=== PATIENT | female | born 1975 | race Caucasian/White ===

== ENCOUNTER 2017-02-27 16:15 | Emergency (ER) | payer OTHER ==
--- NOTE | ~2017-02-27 | CR72 ---
[facility] A Service of [facility] RADIOLOGY TEXT RESULTS PATIENT: BEN HIGGINS LOCATION: [facility] : 77 UNIT #: [id number] AGE: [address]: Yamil Vásquez MD SEX: F ORDER DR: [id number] [facility] [address] [place], [place] [address] [id number] E MR#: [id number] Acc #: [id number] NAME: BEN HIGGINS : 1975 SEX: F STUDY DATE/TIME: 02/27/2017 17:47 UNIT: [facility] ROOM: STUDY DESCRIPTION: CR Chest Single View Portable Attending Physician: Yamil Vásquez M.D. Ordering Physician: Yamil Vásquez M.D. Primary Care Physician: Primary Care Physician No MEDICAL IMAGING REPORT This report is preliminary unless electronic signature is present EXAM Chest portable, 02/27/2017 1747 hours HISTORY Chest pain for 4 hours today. COMPARISON None. FINDINGS Portable upright chest demonstrates normal cardiac, mediastinal and hilar contours. The lungs are well expanded and clear. There is no pleural effusion, pneumothorax or acute bone lesion. IMPRESSION Normal upright portable chest. Dictated by... Milka Butler M.D. THIS IS AN ELECTRONICALLY VERIFIED REPORT Milka Butler M.D. at 02/28/2017 9:33 AM DEEPA/kena TD: 02/27/2017 21:34 JOB #: [id number] MEDICAL IMAGING REPORT Page 1 of 1 COPY
--- NOTE | ~2017-02-27 | EKG ---
PATIENT: BEN HIGGINS UNIT #: [id number] Ventricular Rate: 68 BPM Atrial Rate: 68 BPM P-R Interval: 98 ms QRS Duration: 76 ms Q-T Interval: 394 ms QTC Calculation(Bezet): 418 ms P [place]: -25 degrees Calculated R [place]: 47 degrees Calculated T [place]: 57 degrees Diagnosis Line: Sinus rhythm with short [place] Diagnosis Line: Otherwise normal ECG Diagnosis Line: No previous ECGs available Diagnosis Line: Confirmed by BROOKE PARHAM MD ([id number]) on 02/28/2017 Diagnosis Line: 7:36:30 AM INTERPRETING MD: PRASAD ARAIZA
[~2017-02-27 16:15] MED LIST: BIRTH CONTROL PILL PO; IBUPROFEN800 MG PO; LOTRIMIN 1% CR30 GM EXT; MEDROL DOSEPAK4 MG PO; NO MEDICATIONS; TOBREX5 ML OP; TYLENOL #3 PO; ZANAFLEX4 M1 PO
[2017-02-27 17:37] LABS: BASOPHIL# 0.1 X10e3 (0-0.3); BASOPHIL% 0.6 % (0-2.5); EOSINOPHIL# 0.1 X10e3 (0-0.7); EOSINOPHIL% 0.9 % (0.0-7.0); HEMATOCRIT 35.3 % (35.0-45.0); HEMOGLOBIN 11.4 gm/dL (12.0-16.0); LYMPHOCYTE# 1.6 X10e3 (1.0-3.5); LYMPHOCYTE% 20.1 % (17.0-45.0); MEAN CELL VOLUME 83.4 FL (83-96); MEAN CORPUSCULAR HEMOGLOBIN 26.9 PG (28-34); MEAN CORPUSCULAR HGB CONC 32.2 g/dL (30-36); MEAN PLATELET VOLUME 9.7 FL (6.5-11.5); MONOCYTE# 0.7 X10e3 (0-1.0); MONOCYTE% 8.7 % (3.0-12.0); NEUTROPHIL# 5.4 X10e3 (1.5-7.1); NEUTROPHIL% 69.7 % (40-75); PLATELET COUNT 201 X10e3 (140-420); RED BLOOD COUNT 4.24 X10e (3.90-5.30); RED CELL DISTRIBUTION WIDTH 14.1 % (11.0-15.5); WHITE BLOOD COUNT 7.8 X10e3 (4.0-10.5)
[2017-02-27 17:44] LABS: DIFF IND NO
[2017-02-27 17:48] LABS: PARTIAL THROMBOPLASTIN TIME 26.1 SECONDS (23.5-31.3); PROTHROMBIN TIME (PATIENT) 10.4 SECONDS (9.6-11.5)
[2017-02-27 17:56] LABS: POC - CKMB <1.0 ng/mL (0.0-7.9); POC - TROPONIN <0.05 ng/mL (<=0.05)
[2017-02-27 17:57] LABS: ALKALINE PHOSPHATASE 46 U/L (32-92); ALT (SGPT) 23 U/L (10-40); AST (SGOT) 26 U/L (10-42); BILIRUBIN,TOTAL 0.4 mg/dL (0.2-2.0); BLOOD UREA NITROGEN 14 mg/dL (9-23); CALCIUM SERUM 8.9 mg/dL (8.4-10.2); CARBON DIOXIDE 29 mmol/L (22-31); CHLORIDE 101 mmol/L (100-111); CREATININE SERUM 0.7 mg/dL (0.6-1.4); GLOM FILT RATE Estimated 108.4 mL/min (>60); GLUCOSE FASTING 89 mg/dL (70-110); POTASSIUM 3.6 mmol/L (3.5-5.1); PROTEIN TOTAL SERUM 6.9 g/dL (6.0-8.3); SODIUM 136 mmol/L (135-145)
[2017-02-27 17:59] LABS: BILIRUBIN, DIRECT <0.1 mg/dL (0.0-0.2); BILIRUBIN,INDIRECT 0.3 mg/dL (0.0-0.9)
[2017-02-27 18:56] LABS: POC - CKMB <1.0 ng/mL (0.0-7.9); POC - TROPONIN <0.05 ng/mL (<=0.05)
== END 2017-02-27 19:25 | disposition home or self-care (01) ==
LOC: CED 16:15
PROVIDERS: Emergency Medicine
DX: R07.9 Chest pain, unspecified (principal); F41.9 Anxiety disorder, unspecified; F17.200 Nicotine dependence, unspecified, uncomplicated
CPT/HCPCS: 36415; 71010; 80048; 80076; 82553; 84484; 85025; 85610; 85730; 93005; 99285